=== PATIENT | male | born 1985 | race African-American/Black ===

== ENCOUNTER 2016-05-10 20:59 | Emergency (ER) | payer MEDICARE ==
[~2016-05-10 20:59] MED LIST: COREG25 MG PO; HUMALOG100 UNIT/1 SQ; HYDRALAZINE 50M50 MG PO; LANTUS100 UNIT/1 SQ; LASIX20 MG PO; LOTENSIN40 MG PO; NORVASC10 MG PO; REGLAN10 MG PO; ZOFRAN ODT4 MG SL
== END 2016-05-11 00:23 | disposition home or self-care (01) ==
LOC: FER 20:59
DX: K31.84 Gastroparesis (principal); I10 Essential (primary) hypertension; Z88.6 Allergy status to analgesic agent; Z88.8 Allergy status to other drugs, medicaments and biological substances; Z87.19 Personal history of other diseases of the digestive system; Z97.8 Presence of other specified devices
CPT/HCPCS: J1170

== ENCOUNTER 2016-05-11 13:16 | Emergency (ER) | payer MEDICARE ==
[2016-05-11 15:08] LABS: BASOPHIL 0.1 % (0-2); EOSINOPHIL 0 % (0-5); HCT 29.8 % (42.0-52.0); HGB 9.9 g/dl (13.2-18.0); LYMPHOCYTE 7.4 % (15-48); MCH 27.1 pg (25.0-31.0); MCHC 33.2 g/dL (32.0-36.0); MCV 81.6 fL (78.0-100.0); MONOCYTE 12.9 % (0-12); MPV 10.3 fL (6.0-9.5); NEUTROPHIL 79.6 % (41-80); PLT 250 K/uL (150-400); RBC 3.65 M/uL (4.70-6.00); RDW 17.7 % (11.5-14.0); WBC 9.6 K/uL (4.0-10.5)
[2016-05-11 15:13] LABS: ALBUMIN 3.7 g/dL (3.5-5.0); BILIRUBIN - TOTAL 0.2 mg/dL (0.1-1.0); CREATININE 3.4 mg/dL (0.7-1.2); GLOBULIN (CALCULATION) 2.9 g/dL (2.2-4.2); POTASSIUM 4.5 mmol/L (3.5-5.1); TOTAL PROTEIN 6.6 g/dL (6.4-8.3)
== END 2016-05-11 16:49 | disposition home or self-care (01) ==
LOC: FER 13:16
PROVIDERS: Nurse Practitioner Family
DX: R11.10 Vomiting, unspecified (principal); R10.9 Unspecified abdominal pain; K31.84 Gastroparesis; Z88.5 Allergy status to narcotic agent; Z88.8 Allergy status to other drugs, medicaments and biological substances; Z98.890 Other specified postprocedural states
CPT/HCPCS: 36415; 80053; 85025; J1170; J2405

== ENCOUNTER 2016-05-14 21:14 | Emergency (ER) | payer MEDICARE ==
[2016-05-14 22:21] LABS: BILIRUBIN NEGATIVE (NEGATIVE); BLOOD 2+ Ery/uL (NEGATIVE); CLARITY CLEAR (CLEAR); COLOR YELLOW (YELLOW); GLUCOSE (U) TRACE mg/dL (NORMAL); KETONE (U) TRACE mg/dL (NEGATIVE); LEUKOCYTES NEGATIVE Leu/uL (NEGATIVE); NITRITE NEGATIVE (NEGATIVE); PROTEIN 3+ mg/dL (NEGATIVE); UROBILINOGEN 0.2 mg/dL (0.2-1.0)
[2016-05-14 22:24] LABS: BASOPHIL 0.2 % (0-2); EOSINOPHIL 0.4 % (0-5); HCT 32.1 % (42.0-52.0); HGB 10.7 g/dl (13.2-18.0); LYMPHOCYTE 16.6 % (15-48); MCH 27.2 pg (25.0-31.0); MCHC 33.3 g/dL (32.0-36.0); MCV 81.7 fL (78.0-100.0); MONOCYTE 5.7 % (0-12); NEUTROPHIL 77.1 % (41-80); PLT 332 K/uL (150-400); RBC 3.93 M/uL (4.70-6.00); RDW 16.6 % (11.5-14.0); WBC 13.9 K/uL (4.0-10.5)
[2016-05-14 22:26] LABS: BACTERIA TRACE
[2016-05-14 22:29] LABS: AMPHETAMINES NEGATIVE (NEGATIVE); BARBITURATES NEGATIVE (NEGATIVE); BENZODIAZEPINES NEGATIVE (NEGATIVE); COCAINE NEGATIVE (NEGATIVE); MARIJUANA (THC) POSITIVE (NEGATIVE); TRICYCLIC ANTIDEPRESSANT NEGATIVE (NEGATIVE)
[2016-05-14 22:29] LABS: INR 0.94 (0.9-1.2); PROTHROMBIN TIME 12.2 SECONDS (11.7-14.0); PTT 27.8 SECONDS (23.2-31.4)
[2016-05-14 22:30] LABS: METHADONE NEGATIVE (NEGATIVE)
[2016-05-14 22:42] LABS: ALBUMIN 3.7 g/dL (3.5-5.0); BILIRUBIN - TOTAL 0.3 mg/dL (0.1-1.0); CREATININE 2.8 mg/dL (0.7-1.2); TOTAL PROTEIN 6.7 g/dL (6.4-8.3)
== END 2016-05-15 04:20 | disposition home or self-care (01) ==
LOC: FER 21:14
PROVIDERS: Internal Medicine
DX: R10.84 Generalized abdominal pain (principal); R11.2 Nausea with vomiting, unspecified; I12.0 Hypertensive chronic kidney disease with stage 5 chronic kidney disease or end stage renal disease; E11.22 Type 2 diabetes mellitus with diabetic chronic kidney disease; N18.6 End stage renal disease; E11.43 Type 2 diabetes mellitus with diabetic autonomic (poly)neuropathy; K31.84 Gastroparesis; F17.200 Nicotine dependence, unspecified, uncomplicated; Z87.442 Personal history of urinary calculi; Z88.6 Allergy status to analgesic agent; Z97.8 Presence of other specified devices; Z99.2 Dependence on renal dialysis
CPT/HCPCS: 36415; 80053; 80305; 81001; 83690; 85025; 85610; 85730; C9113; J2405; J2765

== ENCOUNTER 2016-05-21 11:41 | Emergency (ER) | payer MEDICARE ==
[2016-05-21 12:51] LABS: BASOPHIL 0.1 % (0-2); EOSINOPHIL 0.1 % (0-5); HCT 32.6 % (42.0-52.0); HGB 10.5 g/dl (13.2-18.0); LYMPHOCYTE 5.8 % (15-48); MCH 26.8 pg (25.0-31.0); MCHC 32.2 g/dL (32.0-36.0); MCV 83.2 fL (78.0-100.0); MPV 9.5 fL (6.0-9.5); PLT 318 K/uL (150-400); RBC 3.92 M/uL (4.70-6.00); RDW 16.8 % (11.5-14.0)
[2016-05-21 12:52] LABS: WBC 10.2 K/uL (4.0-10.5)
[2016-05-21 13:24] LABS: ALBUMIN 3.9 g/dL (3.5-5.0); BILIRUBIN - TOTAL 0.2 mg/dL (0.1-1.0); CREATININE 3.3 mg/dL (0.7-1.2); POTASSIUM 4.1 mmol/L (3.5-5.1); TOTAL PROTEIN 5.9 g/dL (6.4-8.3)
== END 2016-05-21 13:58 | disposition home or self-care (01) ==
LOC: FER 11:41
PROVIDERS: Internal Medicine
DX: R10.9 Unspecified abdominal pain (principal); G89.29 Other chronic pain; R11.2 Nausea with vomiting, unspecified; Z88.5 Allergy status to narcotic agent; Z88.8 Allergy status to other drugs, medicaments and biological substances
CPT/HCPCS: 36415; 74022; 80053; 83690; 85025; J1170

== ENCOUNTER 2016-05-30 10:01 | Emergency (ER) | payer MEDICARE ==
[2016-05-30 11:10] LABS: BILIRUBIN NEGATIVE (NEGATIVE); BLOOD TRACE-INTACT Ery/uL (NEGATIVE); CLARITY CLEAR (CLEAR); COLOR YELLOW (YELLOW); GLUCOSE (U) TRACE mg/dL (NORMAL); KETONE (U) NEGATIVE (NEGATIVE); LEUKOCYTES NEGATIVE Leu/uL (NEGATIVE); NITRITE NEGATIVE (NEGATIVE); PROTEIN 3+ mg/dL (NEGATIVE); SPECIFIC GRAVITY 1.015 (1.001-1.030); UROBILINOGEN 0.2 mg/dL (0.2-1.0); pH 6.5 (5.0-9.0)
[2016-05-30 11:53] LABS: BASOPHIL 0.1 % (0-2); EOSINOPHIL 0.4 % (0-5); HCT 27.2 % (42.0-52.0); HGB 8.8 g/dl (13.2-18.0); LYMPHOCYTE 11.3 % (15-48); MCH 27.1 pg (25.0-31.0); MCHC 32.4 g/dL (32.0-36.0); MCV 83.7 fL (78.0-100.0); MONOCYTE 5.2 % (0-12); MPV 9.7 fL (6.0-9.5); PLT 269 K/uL (150-400); RBC 3.25 M/uL (4.70-6.00); RDW 15.9 % (11.5-14.0); WBC 14.1 K/uL (4.0-10.5)
[2016-05-30 12:07] LABS: ALBUMIN 2.5 g/dL (3.5-5.0); BILIRUBIN - TOTAL 0.2 mg/dL (0.1-1.0); CREATININE 1.9 mg/dL (0.7-1.2); GLOBULIN (CALCULATION) 2.1 g/dL (2.2-4.2); POTASSIUM 3.1 mmol/L (3.5-5.1); TOTAL PROTEIN 4.6 g/dL (6.4-8.3)
== END 2016-05-30 13:08 | disposition home or self-care (01) ==
LOC: FER 10:01
PROVIDERS: Internal Medicine
DX: R11.10 Vomiting, unspecified (principal); R10.9 Unspecified abdominal pain; Z87.19 Personal history of other diseases of the digestive system; Z97.8 Presence of other specified devices; Z88.6 Allergy status to analgesic agent; Z88.8 Allergy status to other drugs, medicaments and biological substances
CPT/HCPCS: 36415; 80053; 81001; 82150; 83690; 85025; J1170; J2405

== ENCOUNTER 2016-06-07 20:55 | Emergency (ER) | payer MEDICARE ==
[2016-06-07 21:17] LABS: BASOPHIL 0.2 % (0-2); EOSINOPHIL 0.8 % (0-5); HCT 24.8 % (42.0-52.0); HGB 8.7 g/dl (13.2-18.0); LYMPHOCYTE 40.4 % (15-48); MCH 27.4 pg (25.0-31.0); MCHC 35.1 g/dL (32.0-36.0); MONOCYTE 7.6 % (0-12); MPV 10.4 fL (6.0-9.5); PLT 264 K/uL (150-400); RBC 3.18 M/uL (4.70-6.00); RDW 14.9 % (11.5-14.0); WBC 5.1 K/uL (4.0-10.5)
[2016-06-07 21:25] LABS: INR 0.93 (0.9-1.2); PROTHROMBIN TIME 12.1 SECONDS (11.7-14.0); PTT 34.1 SECONDS (23.2-31.4)
[2016-06-07 21:36] LABS: ALBUMIN 2.5 g/dL (3.5-5.0); BILIRUBIN - TOTAL 0.2 mg/dL (0.1-1.0); GLOBULIN (CALCULATION) 2.6 g/dL (2.2-4.2); MAGNESIUM 1.87 mg/dL (1.40-2.10); POTASSIUM 3.4 mmol/L (3.5-5.1); TOTAL PROTEIN 5.1 g/dL (6.4-8.3)
[2016-06-07 21:37] LABS: CKMB 8.05 ng/mL (0.97-4.94); TROPONIN T 0.309 ng/mL
[2016-06-07 21:39] LABS: CREATININE 9.6 mg/dL (0.7-1.2)
== END 2016-06-08 01:15 | disposition other institution (70) ==
LOC: FER 20:55
PROVIDERS: Emergency Medicine
DX: R07.89 Other chest pain (principal); R79.89 Other specified abnormal findings of blood chemistry; R06.02 Shortness of breath; R05 Cough; I12.0 Hypertensive chronic kidney disease with stage 5 chronic kidney disease or end stage renal disease; E11.22 Type 2 diabetes mellitus with diabetic chronic kidney disease; N18.6 End stage renal disease; J45.909 Unspecified asthma, uncomplicated; Z79.4 Long term (current) use of insulin; Z99.2 Dependence on renal dialysis; Z97.8 Presence of other specified devices; Z88.6 Allergy status to analgesic agent; Z88.8 Allergy status to other drugs, medicaments and biological substances
CPT/HCPCS: 36415; 71010; 80053; 82550; 82553; 83735; 83874; 83880; 84484; 85025; 85610; 85730; 93005; 94640; 94760

== ENCOUNTER 2016-08-15 15:01 | Emergency (ER) | payer MEDICARE ==
[2016-08-15 16:11] LABS: BASOPHIL 0.2 % (0-2); EOSINOPHIL 0.3 % (0-5); HCT 34.9 % (42.0-52.0); HGB 11.6 g/dl (13.2-18.0); LYMPHOCYTE 27.1 % (15-48); MCH 25.7 pg (25.0-31.0); MCHC 33.2 g/dL (32.0-36.0); MCV 77.4 fL (78.0-100.0); MONOCYTE 10.8 % (0-12); MPV 10.5 fL (6.0-9.5); NEUTROPHIL 61.6 % (41-80); PLT 308 K/uL (150-400); RBC 4.51 M/uL (4.70-6.00); RDW 15.8 % (11.5-14.0); WBC 5.8 K/uL (4.0-10.5)
[2016-08-15 16:27] LABS: ALBUMIN 3.3 g/dL (3.5-5.0); BILIRUBIN - TOTAL 0.2 mg/dL (0.1-1.0); CREATININE 3.3 mg/dL (0.7-1.2); GLOBULIN (CALCULATION) 2.3 g/dL (2.2-4.2); POTASSIUM 3.8 mmol/L (3.5-5.1); TOTAL PROTEIN 5.6 g/dL (6.4-8.3)
== END 2016-08-15 19:03 | disposition home or self-care (01) ==
LOC: FER 15:01
PROVIDERS: Internal Medicine
DX: R07.89 Other chest pain (principal); I10 Essential (primary) hypertension; E11.43 Type 2 diabetes mellitus with diabetic autonomic (poly)neuropathy; K31.84 Gastroparesis; Z96.89 Presence of other specified functional implants; Z95.828 Presence of other vascular implants and grafts; Z79.899 Other long term (current) drug therapy
CPT/HCPCS: 36415; 71010; 80053; 83690; 84484; 85025; 93005; J1885; J2060

== ENCOUNTER 2016-08-17 04:49 | Emergency (ER) | payer MEDICARE ==
[2016-08-17 05:19] LABS: BASOPHIL 0.2 % (0-2); EOSINOPHIL 0.5 % (0-5); HCT 34.8 % (42.0-52.0); HGB 11.3 g/dl (13.2-18.0); LYMPHOCYTE 16.1 % (15-48); MCH 25.3 pg (25.0-31.0); MCHC 32.5 g/dL (32.0-36.0); MONOCYTE 8.5 % (0-12); MPV 9.5 fL (6.0-9.5); NEUTROPHIL 74.7 % (41-80); PLT 302 K/uL (150-400); RBC 4.46 M/uL (4.70-6.00); RDW 15.7 % (11.5-14.0); WBC 6.1 K/uL (4.0-10.5)
[2016-08-17 05:51] LABS: ALBUMIN 3.6 g/dL (3.5-5.0); BILIRUBIN - TOTAL 0.3 mg/dL (0.1-1.0); GLOBULIN (CALCULATION) 2.8 g/dL (2.2-4.2); POTASSIUM 4.5 mmol/L (3.5-5.1); TOTAL PROTEIN 6.4 g/dL (6.4-8.3)
[2016-08-17 05:52] LABS: CKMB 14.01 ng/mL (0.97-4.94)
[2016-08-17 05:53] LABS: TROPONIN T 0.184 ng/mL
== END 2016-08-17 08:10 | disposition home or self-care (01) ==
LOC: FER 04:49
PROVIDERS: Emergency Medicine Emergency Medical Services
DX: E11.43 Type 2 diabetes mellitus with diabetic autonomic (poly)neuropathy (principal); K31.84 Gastroparesis; I10 Essential (primary) hypertension; Z87.19 Personal history of other diseases of the digestive system; Z88.5 Allergy status to narcotic agent; Z88.8 Allergy status to other drugs, medicaments and biological substances; Z79.4 Long term (current) use of insulin; Z97.8 Presence of other specified devices
CPT/HCPCS: 36415; 71010; 80053; 82150; 82550; 82553; 83690; 84484; 85025; 86140; 93005; 96372; C9113; J0500; J2765; J3360

== ENCOUNTER 2016-08-27 22:59 | Emergency (ER) | payer MEDICARE ==
[2016-08-28 00:33] LABS: BASOPHIL 0.1 % (0-2); EOSINOPHIL 0 % (0-5); HCT 32.7 % (42.0-52.0); HGB 10.8 g/dl (13.2-18.0); LYMPHOCYTE 16.8 % (15-48); MCH 24.5 pg (25.0-31.0); MCV 74.3 fL (78.0-100.0); MPV 10.3 fL (6.0-9.5); NEUTROPHIL 72.1 % (41-80); PLT 280 K/uL (150-400); RDW 16.1 % (11.5-14.0); WBC 7.9 K/uL (4.0-10.5)
[2016-08-28 00:51] LABS: ALBUMIN 3.5 g/dL (3.5-5.0); BILIRUBIN - TOTAL 0.3 mg/dL (0.1-1.0); CREATININE 4.5 mg/dL (0.7-1.2); GLOBULIN (CALCULATION) 2.2 g/dL (2.2-4.2); TOTAL PROTEIN 5.7 g/dL (6.4-8.3)
[2016-08-28 01:54] LABS: BILIRUBIN NEGATIVE (NEGATIVE); BLOOD 1+ Ery/uL (NEGATIVE); CLARITY CLEAR (CLEAR); COLOR YELLOW (YELLOW); GLUCOSE (U) NORMAL (NORMAL); KETONE (U) NEGATIVE (NEGATIVE); LEUKOCYTES NEGATIVE Leu/uL (NEGATIVE); NITRITE NEGATIVE (NEGATIVE); PROTEIN 3+ mg/dL (NEGATIVE); UROBILINOGEN 0.2 mg/dL (0.2-1.0)
[2016-08-28 01:59] LABS: MUCOUS MODERATE
[2016-08-28 02:03] LABS: AMPHETAMINES NEGATIVE (NEGATIVE); BARBITURATES NEGATIVE (NEGATIVE); BENZODIAZEPINES POSITIVE (NEGATIVE); COCAINE NEGATIVE (NEGATIVE); MARIJUANA (THC) POSITIVE (NEGATIVE); METHADONE NEGATIVE (NEGATIVE); TRICYCLIC ANTIDEPRESSANT NEGATIVE (NEGATIVE)
== END 2016-08-28 05:38 | disposition home or self-care (01) ==
LOC: FER 22:59
PROVIDERS: Emergency Medicine Emergency Medical Services
DX: E10.43 Type 1 diabetes mellitus with diabetic autonomic (poly)neuropathy (principal); K31.84 Gastroparesis; I12.0 Hypertensive chronic kidney disease with stage 5 chronic kidney disease or end stage renal disease; E10.22 Type 1 diabetes mellitus with diabetic chronic kidney disease; N18.6 End stage renal disease; Z79.4 Long term (current) use of insulin; Z99.2 Dependence on renal dialysis; Z96.89 Presence of other specified functional implants; Z88.6 Allergy status to analgesic agent; Z88.8 Allergy status to other drugs, medicaments and biological substances; Z79.899 Other long term (current) drug therapy
CPT/HCPCS: 36415; 74022; 80053; 80305; 81001; 82150; 83690; 85025; 93005; 96372; C9113; J0500; J1885; J1980; J2405; J2765; J3360

== ENCOUNTER 2016-11-10 17:55 | Emergency (ER) | payer MEDICARE | END 2016-11-10 18:10 | disposition left against medical advice (07) | LOC: FER 17:55 | DX: R10.9 Unspecified abdominal pain (principal); Z53.21 Procedure and treatment not carried out due to patient leaving prior to being seen by health care provider ==

== ENCOUNTER 2016-11-14 11:28 | Emergency (ER) | payer MEDICARE ==
[2016-11-14 12:18] LABS: BASOPHIL 0.1 % (0-2); EOSINOPHIL 0.1 % (0-5); HCT 41.7 % (42.0-52.0); HGB 13.6 g/dl (13.2-18.0); LYMPHOCYTE 11.5 % (15-48); MCH 25.3 pg (25.0-31.0); MCHC 32.6 g/dL (32.0-36.0); MCV 77.7 fL (78.0-100.0); MONOCYTE 4.5 % (0-12); MPV 10.2 fL (6.0-9.5); NEUTROPHIL 83.8 % (41-80); PLT 229 K/uL (150-400); RBC 5.37 M/uL (4.70-6.00); RDW 19.4 % (11.5-14.0); WBC 7.4 K/uL (4.0-10.5)
[2016-11-14 12:37] LABS: ALBUMIN 2.8 g/dL (3.5-5.0); BILIRUBIN - TOTAL 0.3 mg/dL (0.1-1.0); CREATININE 3.5 mg/dL (0.7-1.2); GLOBULIN (CALCULATION) 2.6 g/dL (2.2-4.2); POTASSIUM 4.7 mmol/L (3.5-5.1); TOTAL PROTEIN 5.4 g/dL (6.4-8.3)
[2016-11-14 12:53] LABS: PROTHROMBIN TIME 12.3 SECONDS (11.4-13.2); PTT 29.8 SECONDS (24.3-32.1)
== END 2016-11-14 19:27 | disposition other institution (70) ==
LOC: FER 11:28
PROVIDERS: Emergency Medicine
DX: R10.9 Unspecified abdominal pain (principal); R11.10 Vomiting, unspecified; E11.43 Type 2 diabetes mellitus with diabetic autonomic (poly)neuropathy; K31.84 Gastroparesis; I12.0 Hypertensive chronic kidney disease with stage 5 chronic kidney disease or end stage renal disease; N18.6 End stage renal disease; Z99.2 Dependence on renal dialysis; E78.5 Hyperlipidemia, unspecified; Z79.4 Long term (current) use of insulin; Z90.49 Acquired absence of other specified parts of digestive tract; Z88.6 Allergy status to analgesic agent; Z88.8 Allergy status to other drugs, medicaments and biological substances; Z79.82 Long term (current) use of aspirin; Z79.899 Other long term (current) drug therapy
CPT/HCPCS: 36415; 80053; 83690; 85025; 85610; 85730; J2405; J2765